=== PATIENT | male | born 1965 | race Caucasian/White ===

== ENCOUNTER 2022-06-30 22:45 | Inpatient (IN) | payer BC ==
[2022-06-30] MEDS ORDERED: MORPHINE 4 MG/ML SYR ONE (23:38)
[2022-06-30] MEDS ORDERED: ONDANSETRON 4 MG/2 ML VIAL ONE (23:38)
[2022-06-30] MEDS ORDERED: NA CHLORIDE 0.9% 2,000 ML ONE (23:38)
[2022-06-30 23:50] LABS: Absolute Lymphocytes (CBC) 0.8 K/uL (0.7-4.9); Hematocrit 47.7 % (39.6-49.0); MCV 78.4 fL (80-100); MPV 8.5 fL (7.6-11.3); RBC Red Blood Cell Count 6.09 M/uL (4.33-5.43)
[2022-06-30 23:58] LABS: Albumin 4.5 g/dL (3.4-5.0); Bilirubin Total 0.8 mg/dL (0.2-1.0); Potassium 4.1 mmol/L (3.5-5.1); Protein, Total 8.8 g/dL (6.4-8.2)
[2022-07-01 00:16] LABS: Anisocytosis 1+; Blood Morphology Comment NOTED (NOT SEEN); Platelet Estimate ADEQ; White Blood Cell Scan OK (OK)
--- NOTE | 2022-07-01 03:30 | EDPHYS ---
Physician Documentation [facility] Name: Hector Chappell Age: 57 yrs Sex: Male : 1965 Arrival Date: 06/30/2022 Time: 22:49 Bed 6 Private MD: ED Physician Kita Toth HPI: 06/30 23:16 This 57 yrs old Male presents to ER via Ambulatory with complaints of Vomiting, pm1 Abdominal Cramping. 23:16 The patient presents to the emergency department with nausea, vomiting, 7 times since pm1 the onset of symptoms, abdominal pain, of the abdomen diffusely, described as crampy, and does not radiate. Onset: The symptoms/episode began/occurred this morning. Possible causes: unknown. The symptoms are aggravated by food , liquids. Patient has not been able to consume fluids since onset of vomiting this AM The symptoms are alleviated by nothing. Associated signs and symptoms: Pertinent negatives: diarrhea, fever. Severity of symptoms: in the emergency department the symptoms are worse. The patient has not experienced similar symptoms in the past. The patient has not recently seen a physician. Patient with reported history of lymphoma with enlarged lymph nodes at the beginning and end of his small intestines. Patient also with history of Crohn's disease. Patient with biopsy of his lymph nodes 2 years ago. Patient not currently taking any treatment for cancer because he was informed that it is typically not responsive to chemotherapy. He is just having CTs for active surveillance. Last CT 2 weeks ago. Historical: - Allergies: 23:01 No Known Allergies; ld1 - Home Meds: 23:01 None [Active]; ld1 - PMHx: 23:01 None; ld1 - Immunization history:: Adult Immunizations up to date, Client reports receiving the 2nd dose of the Covid vaccine. - Social history:: Smoking status: Patient denies any tobacco usage or history of. Patient uses alcohol, weekly. ROS: 23:16 Constitutional: Negative for fever, chills, and weight loss, Cardiovascular: Negative pm1 for chest pain, palpitations, and edema, Respiratory: Negative for shortness of breath, cough, wheezing, and pleuritic chest pain. 23:16 Back: Negative for injury and pain, MS/Extremity: Negative for injury and deformity, Skin: Negative for injury, rash, and discoloration, Neuro: Negative for headache, weakness, numbness, tingling, and seizure. 23:16 Abdomen/GI: Positive for abdominal pain, nausea and vomiting, Negative for diarrhea. 23:16 All other systems are negative. Exam: 23:16 Constitutional: This is a well developed, well nourished patient who is awake, alert, pm1 and in no acute distress. Head/Face: Normocephalic, atraumatic. 23:16 Back: No spinal tenderness. No costovertebral tenderness. Full range of motion. Skin: Warm, dry with normal turgor. Normal color with no rashes, no lesions, and no evidence of cellulitis. MS/ Extremity: Pulses equal, no cyanosis. Neurovascular intact. Full, normal range of motion. 23:16 Cardiovascular: Exam negative for acute changes, Rate: normal, Rhythm: regular, Pulses: no pulse deficits are appreciated, Heart sounds: normal, normal S1and S2. 23:16 Respiratory: Exam negative for acute changes, respiratory distress, shortness of breath. 23:16 Abdomen/GI: Inspection: abdomen appears normal, Palpation: abdomen is soft and non-tender, in all quadrants. 23:16 Neuro: Exam negative for acute changes, Orientation: is normal, Mentation: is normal, Motor: is normal, moves all fours. Vital Signs: 22:57 BP 139 / 92; Pulse 138; Resp 18; Temp 98.9(O); Pulse Ox 98% on R/A; Weight 90.72 kg; ld1 Height 6 ft. 1 in. (185.42 cm); Pain 0/10; 23:45 BP 128 / 94; Pulse 98; Resp 19; Pulse Ox 100% on R/A; kd3 07/01 00:30 BP 142 / 91; Pulse 88; Resp 18; Pulse Ox 99% ; kd3 01:18 BP 133 / 92; Pulse 84; Resp 18 S; Pulse Ox 99% on R/A; as6 02:30 BP 130 / 89; Pulse 59; Resp 18; Pulse Ox 100% on R/A; kd3 04:50 BP 142 / 94; Pulse 72; Resp 19; Pulse Ox 100% on R/A; kd3 06:26 BP 130 / 89; Pulse 84; Resp 18; Pulse Ox 100% on R/A; kd3 06/30 22:57 Body Mass Index 26.39 (90.72 kg, 185.42 cm) ld1 MDM: 06/30 23:13 Patient medically screened. pm1 07/01 03:25 Data reviewed: vital signs. Data interpreted: Pulse oximetry: on room air is 99 %. pm1 Interpretation: normal. Counseling: I had a detailed discussion with the patient and/or guardian regarding: the historical points, exam findings, and any diagnostic results supporting the discharge/admit diagnosis, lab results, radiology results, the need for further work-up and treatment in the hospital. 03:25 Physician consultation: Sheela PRECIADO was contacted at 03:26, regarding admission, pm1 patient's condition, and will see patient in ED, shortly. 06/30 23:12 Order name: CBC with Diff; Complete Time: 00:20 pm1 06/30 23:12 Order name: CMP; Complete Time: 00:20 pm1 06/30 23:12 Order name: Lipase; Complete Time: 00:20 pm1 06/30 23:52 Order name: CBC Smear Scan; Complete Time: 00:20 EDMN 07/01 02:15 Order name: COVID-19 SARS RT PCR (Document "Date of Onset" if Symptomatic); Complete pm1 Time: 04:01 07/01 02:15 Order name: Flu; Complete Time: 03:09 pm1 06/30 23:12 Order name: IV Saline Lock; Complete Time: 23:28 pm1 07/01 01:18 Order name: Abdomen EDMS 06/30 23:12 Order name: Labs collected and sent; Complete Time: 23:28 pm1 Administered Medications: 06/30 23:35 Drug: morphine 4 mg Route: IVP; Infused Over: 4 mins; Site: right antecubital; 3 07/01 06:36 Follow up: Response: No adverse reaction 3 06/30 23:35 Drug: Zofran (Ondansetron) 4 mg Route: IVP; Site: right antecubital; 3 07/01 06:36 Follow up: Response: No adverse reaction 3 06/30 23:36 Drug: NS 0.9% 1000 ml Route: IV; Rate: 1 bolus; Site: right antecubital; 3 07/01 06:36 Follow up: IV Status: Completed infusion 3 06/30 23:36 Drug: NS 0.9% 1000 ml Route: IV; Rate: 1 bolus; Site: right antecubital; kd3 07/01 06:36 Follow up: IV Status: Completed infusion kd3 04:26 Drug: NS 0.9% 1000 ml Route: IV; Rate: 125 ml/hr; Site: right antecubital; kd3 06:36 Follow up: IV Status: Infusion continued kd3 Disposition Summary: 07/01/22 03:29 Hospitalization Ordered Hospitalization Status: Inpatient Admission pm1 Provider: Sheela Mirza pm1 Condition: Stable pm1 Problem: new pm1 Symptoms: have improved pm1 Bed/Room Type: Standard pm1 Location: Telemetry/MedSurg (Inpatient)(07/01/22 12:03) bd Room Assignment: 214(07/01/22 12:03) bd Diagnosis - Small bowel obstruction pm1 - Dehydration pm1 Forms: - Medication Reconciliation Form pm1 - SBAR form pm1 Signatures: Dispatcher [employer] EDMS Allison Light Shelby, RN RN ss Manisha Syed RN RN cg Marinas, Patrick, NP [employer]EL[employer] EXPEDITER pm1 Angeles Han RN RN ld1 Frieda Pickering RN RN kd3 Sheela Mirza, PA PA sb3 Corrections: (The following items were deleted from the chart) 06/30 23:01 23:01 Social history: Smoking status: Patient denies any tobacco usage or history of. ld1 Patient/guardian denies using alcohol, ld1 07/01 01:18 00:49 Abdomen Pelvis W Con+CT.RAD.BRZ ordered. EDMS EDMS 05:03 03:29 Telemetry/MedSurg (Inpatient) pm1 cg 05:03 03:29 pm1 cg 12:03 05:03 [facility] ER HOLD cg ss 12:03 05:03 ERHOLD- cg ss 12:03 12:03 Telemetry/MedSurg (Inpatient) ss bd 12:03 12:03 214 ss bd
--- NOTE | 2022-07-01 03:30 | ER ---
Nurse's Notes [facility] Name: Hector Chappell Age: 57 yrs Sex: Male : 1965 Arrival Date: 06/30/2022 Time: 22:49 Bed 6 Private MD: Diagnosis: Small bowel obstruction;Dehydration Presentation: 06/30 22:57 Chief complaint: Patient states: N/V, abdominal cramping since this morning. Denies ld1 fever. Coronavirus screen: At this time, the client does not indicate any symptoms associated with coronavirus-19. Ebola Screen: No symptoms or risks identified at this time. Initial Sepsis Screen: Does the patient meet any 2 criteria? No. Patient's initial sepsis screen is negative. Does the patient have a suspected source of infection? No. Patient's initial sepsis screen is negative. Risk Assessment: Do you want to hurt yourself or someone else? Patient reports no desire to harm self or others. Onset of symptoms was June 30, 2022. 22:57 Method Of Arrival: Ambulatory ld1 22:57 Acuity: NURIA 3 ld1 Triage Assessment: 23:01 General: Appears in no apparent distress. comfortable, Behavior is calm, cooperative, ld1 appropriate for age. 23:01 Pain: Denies pain. EENT: No signs and/or symptoms were reported regarding the EENT ld1 system. Neuro: Level of Consciousness is awake, alert, obeys commands, Oriented to person, place, time, situation. Cardiovascular: Capillary refill < 3 seconds Patient's skin is warm and dry. Rhythm is sinus tachycardia. Respiratory: Airway is patent Respiratory effort is even, unlabored. GI: Abdomen is flat, non-distended, Reports nausea, vomiting. GI: Reports cramping. : No signs and/or symptoms were reported regarding the genitourinary system. Derm: No signs and/or symptoms reported regarding the dermatologic system. Musculoskeletal: No signs and/or symptoms reported regarding the musculoskeletal system. Historical: - Allergies: 23:01 No Known Allergies; ld1 - Home Meds: 23: None [Active]; ld1 - PMHx: 23:01 None; ld1 - Immunization history:: Adult Immunizations up to date, Client reports receiving the 2nd dose of the Covid vaccine. - Social history:: Smoking status: Patient denies any tobacco usage or history of. Patient uses alcohol, weekly. Screenin/09 06:25 Abuse screen: Denies threats or abuse. Denies injuries from another. Nutritional kd3 screening: No deficits noted. Tuberculosis screening: No symptoms or risk factors identified. Fall Risk None identified. IV access (20 points). Assessment: 06/30 22:59 General: Appears in no apparent distress. Behavior is calm, cooperative. Neuro: Level kd3 of Consciousness is awake, alert, obeys commands, Oriented to person, place, time, situation. GI: Bowel sounds present X 4 quads. 07/01 06:35 Reassessment: No changes from previously documented assessment. Patient and/or family kd3 updated on plan of care and expected duration. Pain level reassessed. Patient is alert, oriented x 3, equal unlabored respirations, skin warm/dry/pink. GI: Abdomen is non-distended. Vital Signs: 06/30 22:57 BP 139 / 92; Pulse 138; Resp 18; Temp 98.9(O); Pulse Ox 98% on R/A; Weight 90.72 kg; ld1 Height 6 ft. 1 in. (185.42 cm); Pain 0/10; 23:45 BP 128 / 94; Pulse 98; Resp 19; Pulse Ox 100% on R/A; kd3 07/01 00:30 BP 142 / 91; Pulse 88; Resp 18; Pulse Ox 99% ; kd3 01:18 BP 133 / 92; Pulse 84; Resp 18 S; Pulse Ox 99% on R/A; as6 02:30 BP 130 / 89; Pulse 59; Resp 18; Pulse Ox 100% on R/A; kd3 04:50 BP 142 / 94; Pulse 72; Resp 19; Pulse Ox 100% on R/A; kd3 06:26 BP 130 / 89; Pulse 84; Resp 18; Pulse Ox 100% on R/A; kd3 06/30 22:57 Body Mass Index 26.39 (90.72 kg, 185.42 cm) ld1 ED Course: 06/30 22:49 Patient arrived in ED. ja2 22:59 Triage completed. ld1 23:01 Arm band placed on right wrist. ld1 23:03 Jay Mcdaniels RN is Primary Nurse. as6 23:04 Juan F cAe NP is PHCP. pm1 23:04 Kita Toth MD is Attending Physician. pm1 23:28 CBC with Diff Sent. kd3 23:28 CMP Sent. kd3 23:28 Lipase Sent. kd3 07/01 01:46 Abdomen In Process Unspecified. EDMS 03:28 Sheela Mirza PA is Hospitalizing Provider. pm1 06:25 Patient has correct armband on for positive identification. kd3 06:25 No provider procedures requiring assistance completed. Inserted saline lock: 18 gauge kd3 in right antecubital area, using aseptic technique. Blood collected. 06:37 Patient admitted, IV remains in place. kd3 Administered Medications: 06/30 23:35 Drug: morphine 4 mg Route: IVP; Infused Over: 4 mins; Site: right antecubital; kd3 07/01 06:36 Follow up: Response: No adverse reaction kd3 06/30 23:35 Drug: Zofran (Ondansetron) 4 mg Route: IVP; Site: right antecubital; kd3 07/01 06:36 Follow up: Response: No adverse reaction kd3 06/30 23:36 Drug: NS 0.9% 1000 ml Route: IV; Rate: 1 bolus; Site: right antecubital; kd3 07/01 06:36 Follow up: IV Status: Completed infusion kd3 06/30 23:36 Drug: NS 0.9% 1000 ml Route: IV; Rate: 1 bolus; Site: right antecubital; kd3 07/01 06:36 Follow up: IV Status: Completed infusion kd3 04:26 Drug: NS 0.9% 1000 ml Route: IV; Rate: 125 ml/hr; Site: right antecubital; kd3 06:36 Follow up: IV Status: Infusion continued kd3 Medication: 06:26 VIS not applicable for this client. kd3 Outcome: 03:29 Decision to Hospitalize by Provider. pm1 06:25 Condition: stable kd3 06:37 Admitted to ER Hold. Please see [facility] for further documentation. kd3 06:37 Discharge instructions given to patient, Instructed on the need for admit. 13:00 Patient left the ED. ph Signatures: Dispatcher [employer] EDWV Haydee Moon RN RN ph Juan F Ace NP TAB MACHINE OPERATOR pm1 Angeles Han RN RN ld1 Sarah Aguirre Ashby, RN RN as6 Frieda Pickering RN RN kd3 Corrections: (The following items were deleted from the chart) 06/30 23:01 23:01 Social history: Smoking status: Patient denies any tobacco usage or history of. ld1 Patient/guardian denies using alcohol, ld1 07/01 06:35 06:25 General: Appears in no apparent distress. Behavior is calm, cooperative, kd3 kd3 06:25 Neuro: Level of Consciousness is awake, alert, obeys commands, Oriented to kd3 person, place, time, situation, kd3 06:25 GI: Bowel sounds present X 4 quads. kd3 kd3
--- NOTE | 2022-07-01 04:26 | P.HP ---
Certification for Inpatient Patient admitted to: Inpatient With expected LOS: <2 Midnights Patient will require the following post-hospital care: None Practitioner: I am a practitioner with admitting privileges, knowledge of patient current condition, hospital course, and medical plan of care. Services: Services provided to patient in accordance with Admission requirements found in Title 42 Section 412.3 of the Code of Federal Regulations Patient History Date of Service: 07/01/22 Reason for admission: SBO History of Present Illness: Patient is a 57-year-old male with Crohn's and lymphoma (diagnosed 2 years ago, monitored frequently) who presented to the ED with complaints of abdominal pain, nausea, and vomiting. Patient reports that he has been experiencing episodes of abdominal cramping with associated nausea and vomiting off and on for a few weeks now, but not as severe. Patient states that with his Crohn's, he often experiences "attacks" with severe abdominal cramping. He used to be on mesalamine, which helped, but was taken off of it a few years ago. Patient states that he vomited 7 times today before coming in. He was tachycardic at 138 upon presentation. He was started on fluids, morphine, and Zofran. His CT showed "multiple mildly dilated fluid-filled small bowel loops within the central abdomen with adjacent mesenteric edema. There a few interspersed segments of small bowel which appear more normal in caliber and somewhat thickened. There is a transition in the right lower quadrant. Air-fluid levels within the proximal to mid large bowel." Labs significant for WBC 16 and creatinine 1.62. Patient has not vomited since receiving Zofran in the ED. Bowel sounds hypoactive on exam, no tenderness on palpation. His vital signs are stable. He is admitted for further evaluation and treatment of small bowel obstruction. Home medications list reviewed: Yes - Past Medical/Surgical History Diabetic: No -: Crohns -: Lymphoma -: Asthma Past Surgical History: Patient denies surgical history Psychosocial/ Personal History: Patient lives at home. - Family History Father -: Other (see notes) (Parkinson) - Social History Smoking Status: Never smoker Alcohol use: No CD- Drugs: No Caffeine use: Yes Place of Residence: Home Review of Systems Gastrointestinal: Nausea, Vomiting, Abdominal Pain Physical Examination - Physical Exam General: Alert, In no apparent distress, Oriented x3 HEENT: Atraumatic, PERRLA, EOMI, Sclerae nonicteric Neck: Supple, No LAD Respiratory: Clear to auscultation bilaterally, Normal air movement Cardiovascular: Regular rate/rhythm, Normal S1 S2 Gastrointestinal: Hypoactive, Non-distended, No tenderness Musculoskeletal: No tenderness Integumentary: No rashes Neurological: Normal speech, Normal strength at 5/5 x4 extr, Normal tone, Normal affect - Studies Laboratory Data (last 24 hrs) 06/30/22 23:26: Sodium 136, Potassium 4.1, BUN 15, Creatinine 1.62 H, Glucose 130 H, Total Bilirubin 0.8, AST 20, ALT 35, Alkaline Phosphatase 113, Lipase 88 06/30/22 23:26: WBC 16.1 H, Hgb 15.8, Hct 47.7, Plt Count 413 H Microbiology Data (last 24 hrs): 07/01/22 02:25 Nasopharnyx Influenza Type A Antigen Screen - Final 07/01/22 02:25 Nasopharnyx Influenza Type B Antigen Screen - Final Assessment and Plan - Problems (Diagnosis) (1) Small bowel obstruction Current Visit: Yes Status: Acute (2) Crohn's disease Current Visit: Yes Status: Acute Qualifiers: Gastrointestinal tract location: unspecified location Digestive disease complication type: with intestinal obstruction Qualified Code(s): K50.912 - Crohn's disease, unspecified, with intestinal obstruction (3) Lymphoma Current Visit: Yes Status: Acute Qualifiers: Lymphoma type: unspecified type Lymphoma site: intra-abdominal nodes Qualified Code(s): C85.93 - Non-Hodgkin lymphoma, unspecified, intra-abdominal lymph nodes - Plan -GI and surgical consult -NPO. Continue IVF at 125 cc/hr -Morphine and zofran as needed -NG tube not indicated at this time. Will continue to monitor. -Will hold off on antibiotics at this time -Lymphoma is monitored via CT scans regularly. Per patient, CT 2 weeks ago showed enlarged lymph nodes in small intestine. Had biopsy 2 years ago. States that his lymphoma is not responsive to chemotherapy. -Monitor and replete electrolytes per protocol -Reconcile and continue home medications -Lovenox for VTE ppx -Full code Discharge Plan: Home Plan to discharge in: 48 Hours - Advance Directives Does patient have a Living Will: No Does patient have a Durable POA for Healthcare: No - Code Status/Comfort Care Code Status Assessed: Yes (Full) Critical Care: No Time Spent Managing Pts Care (In Minutes): 50
[2022-07-01] MEDS ORDERED: NA CHLORIDE 0.9% 1,000 ML ONE (04:30)
[2022-07-01] MEDS ORDERED: ACETAMINOPHEN 500 MG TAB PO PRN (06:11)
[2022-07-01] MEDS ORDERED: ONDANSETRON 4 MG/2 ML VIAL IV PRN (06:11)
[2022-07-01] MEDS ORDERED: MORPHINE 4 MG/ML SYR IV PRN (06:11)
[2022-07-01] MEDS: NA CHLORIDE 0.9% 1,000 ML IV SCH ×2 (06:11→14:11)
[2022-07-01 06:18] VITALS: BMI 32.3
[2022-07-01] MEDS: ENOXAPARIN 40 MG/0.4 ML SQ SCH (09:00)
--- NOTE | 2022-07-01 13:31 | RAD REPORT ---
EXAM DESCRIPTION: CT - Abdomen Pelvis Wo Contrast - 07/01/2022 4:21 am CLINICAL HISTORY: Abdominal pain, acute, nonlocalized TECHNIQUE: Axial computed tomography images of the abdomen and pelvis without intravenous contrast. Sagittal and coronal reformatted images were created and reviewed. This CT exam was performed usi ng one or more of the following dose reduction techniques: automated exposure control, adjustment o f the mA and/or kV according to patient size, and/or use of iterative reconstruction technique. COMPARISON: No relevant prior studies available. FINDINGS: Lung bases: Unremarkable. No mass. No consolidation. ABDOMEN: Liver: Unremarkable. Gallbladder and bile ducts: Unremarkable. No calcified stones. No ductal dilation. Pancreas: Unremarkable. No ductal dilation. Spleen: Unremarkable. No splenomegaly. Adrenals: Unremarkable. No mass. Kidneys and ureters: Unremarkable. No obstructing stones. No hydronephrosis. Stomach and bowel: Multiple mildly dilated fluid-filled small bowel loops within the central abdome n. Adjacent mesenteric edema. There are a few interspersed segments of small bowel which appear more normal in caliber and somewhat thickened. There is a transition in the right lower quadrant. Air-fl uid levels within the proximal to mid large bowel. Colonic diverticula without adjacent inflammatory change. PELVIS: Appendix: Normal caliber appendix. No findings to suggest acute appendicitis. Bladder: Unremarkable. No stones. Reproductive: Unremarkable as visualized. ABDOMEN and PELVIS: Intraperitoneal space: Unremarkable. No free air. No significant fluid collection. Bones/joints: Mild multilevel spondylosis. No acute fracture. No dislocation. Soft tissues: Tiny fat-containing umbilical hernia. Vasculature: Unremarkable. No abdominal aortic aneurysm. Lymph nodes: Subcentimeter mesenteric lymph nodes. IMPRESSION: 1. Findings suggesting small bowel obstruction. There are a few interspersed segments of small bowel which appear more normal in caliber and somewhat thickened possibly related to nonspec ific enteritis. 2. Other findings as above. Electronically signed by: Rakel Desouza MD 07/01/2022 2:54 AM CDT Due to temporary technical issues with the PACS/Fluency reporting system, reports are being signed by the in house radiologists without review as a courtesy to insure prompt reporting. The interpreting radiologist is fully responsible for the content of the report.
[2022-07-01 13:59] VITALS: O2SAT 100
[2022-07-01] MEDS: D5 0.9 NS 1,000 ML IV SCH (18:10)
[2022-07-02 04:27] LABS: Absolute Lymphocytes (CBC) 1.3 K/uL (0.7-4.9); Hematocrit 36.5 % (39.6-49.0); Lymphocytes % 28.1 % (15.3-44.8); MPV 8.1 fL (7.6-11.3); RBC Red Blood Cell Count 4.68 M/uL (4.33-5.43)
[2022-07-02 04:34] LABS: Magnesium 2.2 mg/dL (1.8-2.4); Potassium 4.4 mmol/L (3.5-5.1)
[2022-07-02] MEDS: D5 0.9 NS 1,000 ML IV SCH ×2 (07:20→22:07)
[2022-07-02] MEDS: ENOXAPARIN 40 MG/0.4 ML SQ SCH (10:01)
--- NOTE | 2022-07-02 10:01 | RAD REPORT ---
EXAM DESCRIPTION: RAD - Abdomen Single View - 07/02/2022 9:54 am CLINICAL HISTORY: SBO COMPARISON: Abdomen Pelvis Wo Contrast dated 07/01/2022 FINDINGS: Persistent small-bowel dilatation now measurement of 4.6 cm in the left hemiabdomen. Based on this measurement, this is increased from prior. No acute osseous abnormality.Visualized lungs are unremarkable.No abnormal calcifications. IMPRESSION: Increased small bowel dilatation remains concerning for small bowel obstruction.
--- NOTE | 2022-07-03 01:28 | P.PN ---
Subjective Date of Service: 07/02/22 Subjective: No new changes, No C/O voiced, Improving Review of Systems 10-point ROS is otherwise unremarkable Physical Examination - Vital Signs Temperature: 97.4 F Blood Pressure: 130/67 Pulse: 67 Respirations: 19 Pulse Ox (%): 99 - Physical Exam General: Alert, In no apparent distress HEENT: Atraumatic, PERRLA, EOMI Neck: Supple, JVD not distended Respiratory: Clear to auscultation bilaterally, Normal air movement Cardiovascular: Regular rate/rhythm, Normal S1 S2 Gastrointestinal: Normal bowel sounds, No tenderness Musculoskeletal: No tenderness Integumentary: No rashes Neurological: Normal speech, Normal tone, Normal affect Lymphatics: No axilla or inguinal lymphadenopathy - Studies Medications List Reviewed: Yes Assessment & Plan - Problems (Diagnosis) (1) Small bowel obstruction Current Visit: Yes Status: Acute - Plan plan: 1. Continue with IV fluids 2. repeat abdominal film; no significant changes on abdominal film from today. Keep NPO per surgery recommendation 3. Appreciate surgery consultation 4. Out of bed and ambulate 5. May give patient some mineral oil 6. Gi DVT prophylaxis Discharge Plan: Home Plan to discharge in: 48 Hours - Advance Directives Does patient have a Living Will: No Does patient have a Durable POA for Healthcare: No - Code Status/Comfort Care Code Status Assessed: Yes Code Status: Full Code Critical Care: No Time Spent Managing PTS Care (In Minutes): 35
[2022-07-03 04:25] LABS: Absolute Lymphocytes (CBC) 1.4 K/uL (0.7-4.9); Hematocrit 37.2 % (39.6-49.0); Lymphocytes % 30.7 % (15.3-44.8); MCV 78.6 fL (80-100); MPV 7.8 fL (7.6-11.3); RBC Red Blood Cell Count 4.74 M/uL (4.33-5.43)
[2022-07-03 04:31] LABS: Magnesium 1.8 mg/dL (1.8-2.4); Potassium 3.6 mmol/L (3.5-5.1)
[2022-07-03] MEDS: ENOXAPARIN 40 MG/0.4 ML SQ SCH (08:46)
[2022-07-03] MEDS ORDERED: MAGNESIUM SULFATE 1 gm IVPB 1 GM/100 ML BAG IV ONE (09:00)
[2022-07-03] MEDS ORDERED: POTASSIUM CL SA 10 MEQ TAB PO ONE (09:00)
[2022-07-03] MEDS ORDERED: KCL 20 MEQ/100 mL IVPB 20 MEQ/100 ML BAG IV SCH (09:00)
[2022-07-03] MEDS: D5 0.9 NS 1,000 ML IV SCH (10:05)
[2022-07-03 12:04] VITALS: BP 151/97; TEMP 97.2
== END 2022-07-03 15:00 | disposition home or self-care (01) | DRG 386 ==
LOC: ER 22:45 → ERHOLD 07-01 04:11 → 2ND 07-01 12:24
PROVIDERS: ADMIT Hospitalist; ATTEND Hospitalist
DX: K50.012 Crohn's disease of small intestine with intestinal obstruction (principal); C85.93 Non-Hodgkin lymphoma, unspecified, intra-abdominal lymph nodes; Z20.822 Contact with and (suspected) exposure to COVID-19
CPT/HCPCS: 36415; 74018; 74176; 80048; 80053; 82947; 83690; 83735; 85025; 87804; 96361; 96374; 96375; 99285; J1650; J2405; J3475; J3480; J7030; J7042; U0003